=== PATIENT | female | born 1980 | race Caucasian/White ===

== ENCOUNTER 2016-07-08 20:35 | Emergency (ER) | payer OTHER ==
[~2016-07-08] VITALS: Ht 160 cm; Wt 97.5 kg
[2016-07-08] MEDS ORDERED: ZANTAC 150MG T150 MG PO (20:40)
[2016-07-08] MEDS ORDERED: SINGULAIR 10 MG10 M1 PO (20:40)
[2016-07-08] MEDS ORDERED: EFFEXOR 5050 MG/1 T1 PO (20:40)
[2016-07-08] MEDS ORDERED: HYDROXYZINE HCL25 M1 PO (20:41)
[2016-07-08] MEDS ORDERED: AMBIEN 5 MG TABL5 M1 PO (20:41)
[2016-07-08] MEDS ORDERED: TRAZODONE 150150 M1 PO (20:41)
[2016-07-08 22:07] VITALS: BP 135/92
== END 2016-07-08 22:09 | disposition home or self-care (01) ==
LOC: ER 20:35
DX: L02.215 Cutaneous abscess of perineum (principal); F32.9 Major depressive disorder, single episode, unspecified; F41.9 Anxiety disorder, unspecified; Z90.721 Acquired absence of ovaries, unilateral; Z98.890 Other specified postprocedural states; Z88.8 Allergy status to other drugs, medicaments and biological substances